=== PATIENT | female | born 1945 | race Caucasian/White ===

== ENCOUNTER → 2017-12-19 | Outpatient (CLI) | payer OTHER ==
[~2017-12-19] MED LIST: ELIQUIS5 MG PO; MEDROLDOSEPACK PO; NEXIUM40 MG PO; TOPROL XL25 MG PO; TYLENOL325 MG PO; ZANAFLEX2 MG PO
--- NOTE | 2018-01-15 08:24 | PAINCON ---
[address] [address] PAIN MANAGEMENT CONSULTATION Name: RAUDEL VILLAGOMEZ Room: [facility] YASMANY Villalobos#: [id number] Admission: 12/19/17 Attend Phys: Ana Werner MD Discharge: Date of : 43 Report #: [id number] THIS REPORT FOR: //name// CC: Olman Werner DATE OF SERVICE: 12/19/2017 FOLLOWUP COMPLAINT: Here for an injection. FOLLOWUP HISTORY: The patient is a 72-year-old female who has been seen in the pain clinic because of lumbar radiculopathy. She continues to have pain and discomfort in the lower portion of her back with pain radiating down into the lateral portion of her back. Epidural steroid injections were performed at the last visit. She did have some pain that was radiating down the posterior portion of her leg in the L5, S1 distribution. Now, her pain is more in the L4-L5 distribution. She has had no complication from the procedure. She feels that she is still somewhat limited in her ability to engage in activities of daily living at work. She does work heavy and does have a pretty physical job. She does quite a bit of cooking. She feels that another injection today could be beneficial and would like to proceed. She is having pain in the low back, hip and down into her legs involving the buttocks with some tingling sensation. She rates her pain as a 9/10 at this juncture. She tries not to take very many medications. She takes Tylenol 615 mg p.r.n. Does not take any nonsteroidal anti-inflammatory medications. She does have some problems with atrial fibrillation. She finds that metoprolol helps keep this under control. Therefore, she is not taking a nonsteroidal anti-inflammatory medication. ALLERGIES: PENICILLIN, OPIOIDS, MEPERIDINE, TOLMETIN. CURRENT MEDICATIONS: Tylenol 650 mg every 6 hours p.r.n., Eliquis 5 mg p.o. b.i.d. The patient has not taken for 3 days, Nexium 40 mg daily, metoprolol 25 mg daily. PAIN CLINICAL ASSESSMENT: 1. The patient states she is not being treated for osteoarthritis or rheumatoid arthritis. 2. Height 5 feet 4 inches, weight 179 pounds, BMI is 30. 3. Vital signs: Blood pressure 128/70, heart rate 72, respiratory rate 16, room air saturation 97%, temperature 97.7. 4. Pain intensity judged to be 9. 5. Fall risk. The patient has not fallen in the last 3 months. 6. The patient is on Eliquis and has stopped this and has taken it for the last 3 days secondary to anticipation of an epidural steroid injection. 7. History of hypertension. The patient is not being [place] [address] PAIN MANAGEMENT CONSULTATION Name: HERNANDORAUDEL Erika Room: [facility]#: [id number] Admission: 12/19/17 Attend Phys: Ana Werner MD Discharge: Date of : 43 Report #: [id number] 8. Opioid use. The patient is not taking opioids on a regular basis. 9. Risk assessment tool. 10. Functional assessment tool. 11. Recreational drugs. The patient never used recreational drugs, tobacco use. She does not use tobacco or alcohol. She does not drink alcohol. PHYSICAL EXAMINATION: GENERAL: The patient is a well-developed, well-nourished female. She is able to ambulate without problem. Appearance is appropriate. Orientation: The patient is alert and oriented x 3. Affect is appropriate. HEAD, EARS, EYES, NOSE AND THROAT: Head is atraumatic. Eyes: Extraocular muscles intact. EARS: Normal hearing. No nasal discharge or complaint. Moist buccal membranes. NECK: Without adenopathy or masses. LUNGS: Clear to auscultation. HEART: Regular rate without murmur. Normal S1, S2. ABDOMEN: Nontender. Patient has some walks slightly slow with an antalgic gait, complaining of back pain with radiation down into her legs. Complains of pain and discomfort along L4-L5 dermatomal distribution with pain radiating down to the level of her feet. IMPRESSION: 1. Lumbar radiculopathy involving the L4 L5 distribution of pain today. The patient notes some numbness, weakness and tenderness in the affected area. She has some limited movement because of pain and discomfort in the lower portion of her back. 2. History of atrial fibrillation, stable with use of metoprolol. 3. Difficulty working secondary to lifting at work. RECOMMENDATIONS: We discussed treatment options with the patient. Risks and benefits of an epidural steroid injection were again discussed. Possible complications of the procedure were reviewed. They include but are not limited to infection, increased muscle soreness headache, bleeding, nerve trauma or worsening of pain. The patient states that she would like to proceed with an injection with hopes that her pain could not improve. She continues to work and notes that she has some pain in the mid spinous area of the L3-L4, L4-L5 and L5-S1 paraspinous muscle areas. PROCEDURE NOTE: The patient was taken to the treatment area. She was helped on to the bed. Her back was sterilely prepped with a Betadine solution. 0.25% bupivacaine was infiltrated into the L4-L5 interspace. This area had been sterilely prepped with Betadine and infiltrated with 0.25% bupivacaine. Anterior, posterior and lateral viewing with the fluoroscope indicated appropriate placement. A 17-gauge Tuohy with loss of resistance technique was used to gain access to the epidural space. There was no CSF, [place] [address] PAIN MANAGEMENT CONSULTATION Name: RAUDEL VILLAGOMEZ Room: [facility] YASMANY Villalobos#: [id number] Admission: 12/19/17 Attend Phys: Ana Werner MD Discharge: Date of : 43 Report #: [id number] paresthesia. Total of 80 mg Depo-Medrol, 40 mg triamcinolone and 2 mL of 0.25% bupivacaine was injected. The patient tolerated the procedure well. There were no complications. She remained in the pain clinic for an appropriate amount of time. She will follow up in the future as needed. We would like to thank you for letting us participate in her care. We hope she continues to improve. <ELECTRONICALLY SIGNED> By: Ana Werner MD 01/15/18 0824 1309 1933N. Morteza Werner MD /nt
== END | disposition home or self-care (01) ==
LOC: M.PC 01:52
DX: M54.16 Radiculopathy, lumbar region (principal); I48.91 Unspecified atrial fibrillation; Z88.0 Allergy status to penicillin; Z88.6 Allergy status to analgesic agent; Z88.8 Allergy status to other drugs, medicaments and biological substances; Z79.899 Other long term (current) drug therapy; Z88.2 Allergy status to sulfonamides

== ENCOUNTER → 2018-02-27 | Outpatient (CLI) | payer OTHER ==
--- NOTE | 2018-03-04 08:16 | PAINCON ---
[address] [address] PAIN MANAGEMENT CONSULTATION Name: RAUDEL VILLAGOMEZ Erika Room: [facility] YSAMANY Villalobos#: [id number] Admission: 02/27/18 Attend Phys: Ana Werner MD Discharge: Date of : 43 Report #: [id number] THIS REPORT FOR: //name// CC: Olman Werner DATE OF SERVICE: 02/27/2018 FOLLOWUP COMPLAINT: "I still have some pain in the low back, hips and the most pain is in the middle of my back." FOLLOWUP HISTORY: The patient is a 72-year-old female, who has been seen in the pain clinic because of lumbar radiculopathy. She also has some pain and discomfort in the middle of her back, which is myofascial in nature. She finds that this pain is that which is most problematic at this juncture. Pain in the center of the back, which can be reproduced with pressing in the area. She rates it as a 9/10. Finds that activities of daily living such as walking, standing, sitting, lifting and bending can be problematic. She states that she has been using a TENS unit. She feels that the epidural steroid injections may have been helpful, but she is no longer having some of the pain that was radiating down into her legs, that which is most problematic today is in the mid portion of her back. Bending and twisting can worsen this pain. She gets a significant pulling sensation in that area when she bends over. ALLERGIES: PENICILLIN, OPIOIDS, MEPERIDINE, AND TOLMETIN. CURRENT MEDICATIONS: 1. Tylenol 600 mg p.o. q. 6 hours p.r.n. 2. Eliquis 5 mg p.o. b.i.d. The patient is not taking this medication for last 3 days with anticipation of an injection. 3. Nexium 40 mg daily. 4. Metoprolol 25 mg daily. PAIN CLINIC ASSESSMENT: 1. The patient is not being treated for osteoarthritis or rheumatoid arthritis. 2. Height 5 feet 4 inches, weight 181 pounds, BMI is 31. 3. Vital Signs: Blood pressure 134/67, respiratory rate 16, room air saturation is 97%, heart rate 66, temperature 97.6. 4. Pain intensity is judged to be 9/9. 5. Fall risk: The patient has not fallen in the last 3 months. 6. Use of anticoagulant medication. The patient is on Eliquis. She has stopped taking this for the last couple of days anticipating a treatment today. 7. Hypertension. The patient is not being treated for hypertension. 8. Opioid use. The patient denies use of opioid use for greater than 6 weeks. 9. [place] [address] PAIN MANAGEMENT CONSULTATION Name: HERNANDORAUDEL Erika [id number] Admission: 02/27/18 Attend Phys: Ana Werner MD Discharge: Date of : 43 Report #: [id number] 10. Functional assessment tool. 11. Recreational drug use: The patient denies use of recreational drugs. 12. Tobacco use. The patient denies use of tobacco. 13. Alcohol: The patient denies use of alcohol. PHYSICAL EXAMINATION: GENERAL: The patient is a well-developed, well-nourished female. She appears her stated age. She is able to ambulate without significant difficulty. She does complain of pain and discomfort and moves somewhat stiffly in the examination room during the interview. Appearance is appropriate. Orientation is appropriate and oriented x 3. Affect is appropriate. HEENT: Normocephalic, atraumatic. Extraocular eye muscles intact. Hearing was within normal limits. Sclerae are nonicteric. Mucous membranes are moist. NECK: Without adenopathy or bruits. Good range of motion. CHEST: Clear to auscultation without rhonchi or rales. ABDOMEN: Nontender, slightly protuberant. MUSCULOSKELETAL: The patient complains of pain and discomfort in the midline at approximately L3 through the dorsum of her sacrum. Palpation at about L4-L5 causes a worsening of pain and discomfort. The patient states that this is an area that is quite problematic and rates it as a 9/10. IMPRESSION: 1. Myofascial pain, midline at approximately L4-L5 to palpation. 2. History of lumbar radicular pain, which has improved somewhat after the last epidural steroid injection. 3. History of atrial fibrillation. The patient is on a blood thinning medication, which she has stopped. 4. History of difficulty working secondary to back pain. 5. The patient was recently fired from her job. RECOMMENDATIONS: We discussed the treatment options with the patient. She does have pain and discomfort in the midline area. Palpation in the midline area and paraspinous muscles at the L3-L4 area cause a significant amount of pain and discomfort. The patient is unable to lean forward because of pain in this area. Lumbar extension is limited because of this, left and right lateral rotation is limited because of this. We discussed the injection of this area with local anesthetic and steroid. Risks and benefits of the procedure were discussed with the patient and she elects to proceed. PROCEDURE NOTE: The patient was placed in the sitting position. Her back was sterilely prepped with a Betadine swab. 0.25% bupivacaine was infiltrated with 40 mg triamcinolone and use of a 25-gauge needle. A total of 10 mL of 0.5% bupivacaine and 80 mg triamcinolone was injected into this area. The patient tolerated the procedure well. She remained in the pain clinic for appropriate amount of time. She states that the pain feels a bit better. She is unable to quantify the amount of [place] [address] PAIN MANAGEMENT CONSULTATION Name: RAUDEL VILLAGOMEZ Erika Room: [facility]#: [id number] Admission: 02/27/18 Attend Phys: Ana Werner MD Discharge: Date of : 43 Report #: [id number] The patient disenchanted that she recently has been fired. She feels that it is not justified. She states that she is not aware that someone could be fired while they were still convalescing from an injury. We would like to thank you for letting us participate in her care. We hope she continues to improve. <ELECTRONICALLY SIGNED> By: Ana Werner MD 03/04/18 0816 1420 [id number]. Morteza Werner MD /[facility]
== END | disposition home or self-care (01) ==
LOC: M.PC 03:25
DX: M79.1 Myalgia (principal); M54.16 Radiculopathy, lumbar region; I48.91 Unspecified atrial fibrillation; Z79.01 Long term (current) use of anticoagulants; Z88.0 Allergy status to penicillin; Z88.2 Allergy status to sulfonamides; Z88.8 Allergy status to other drugs, medicaments and biological substances; Z79.899 Other long term (current) drug therapy

== ENCOUNTER → 2018-03-27 | Outpatient (CLI) | payer OTHER ==
--- NOTE | 2018-04-23 13:50 | PAINCON ---
[address] [address] PAIN MANAGEMENT CONSULTATION Name: HERNANDORAUDEL Erika Room: [facility] YASMANY Villalobos#: [id number] Admission: 03/27/18 Attend Phys: Ana Werner MD Discharge: Date of : 43 Report #: [id number] THIS REPORT FOR: //name// CC: Olman Werner DATE OF SERVICE: 03/27/2018 FOLLOWUP COMPLAINT: "The H-wave machine still is helpful and I am still having back pain." FOLLOWUP HISTORY: The patient is a 72-year-old female who has been seen in the pain clinic because of low back pain involving her hips as well as the middle of her back. As you may recall, she worked at [employer]. 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 States that when she was delivering food to a venue, the item that she was carrying was somewhat oversized and bulky. While carrying this into the building she noted some worsening of pain and discomfort in her back. She has been suffering from pain and discomfort as a result of that for some time. She has undergone epidural steroid injection. She felt like that was somewhat helpful. She still had pain and discomfort. She returned and note was made of a trigger point at the last visit and she underwent a trigger point injection using 40 mg of triamcinolone and 80 mg in the L3-L4 areas. Overall, she felt that there was some improvement in her pain. She did find that as she has in the past she turned significantly red. This is a usual finding. She then feels that she may have had some outbreaks about a week later. Noted some irritation around her eye glasses and area around her chin kind of one in the front chest area, but did not note an overall generalized rash. She feels that the nerve stimulating unit H-wave unit continues to be beneficial. She does use it at home. She has had no complications from that. She has returned today for evaluation and further consideration of treatment options. ALLERGIES: PENICILLIN, OPIOIDS, MEPERIDINE, TOLMETIN. CURRENT MEDICATIONS: Tylenol p.r.n., Eliquis 5 mg p.o. b.i.d., Nexium 40 mg daily, metoprolol 25 mg daily. PAIN CLINIC ASSESSMENT: 1. Osteoarthritis/rheumatoid arthritis. The patient is not being treated for osteoarthritis or rheumatoid arthritis. 2. Height 5 feet 4 inches, weight 178 pounds, BMI is 30.7. 3. Vital signs: Blood pressure is 148/75, heart rate is 49, respiratory rate 16, room air saturation 96%, and temperature 97.8. Pain intensity judged to be 8/10. [place] [address] PAIN MANAGEMENT CONSULTATION Name: RAUDEL VILLAGOMEZ Room: [facility] Griselda#: [id number] Admission: 03/27/18 Attend Phys: Ana Werner MD Discharge: Date of : 43 Report #: [id number] 4. Fall risk. The patient has not fallen in the last 3 months. 5. Use of anticoagulant: The patient is on Eliquis and has continued with her medication. 6. Hypertension: The patient is not being treated for hypertension. 7. Opioid use: The patient denies use of opioid therapy greater than 6 weeks. 8. Risk assessment tool. 9. Functional assessment tool. 10. Recreational drug use: The patient denies use of recreational drugs 11. Tobacco use: The patient denies use of tobacco. 12. Alcohol: The patient denies use of alcohol. PHYSICAL EXAMINATION: GENERAL: The patient is a well-developed, well-nourished white female. She appears to be than her stated age. She is loquacious. Does complain of pain and discomfort as well as some stiffness in her low back area. HEENT: Normocephalic, atraumatic. Extraocular eye muscles intact. Sclerae nonicteric Hearing is within normal limits. NECK: Without bruits, or adenopathy. Has good range of motion. CHEST: Clear to auscultation without rhonchi or rales. ABDOMEN: Nontender, slightly protuberant. MUSCULOSKELETAL: The patient complains of pain and discomfort in the midline area at approximately L3 in the dorsum of her sacrum. Palpation in the L4-L5 paraspinous areas reproduces some discomfort. SKIN: No evidence of welts or skin breakout is noted at the time of our interview. IMPRESSION: 1. Continued myofascial pain in the midline area at approximately L4-L5. 2. History of lumbar radicular pain somewhat improved and difficult to assess in the problem today. 3. History of atrial fibrillation. The patient is on a blood thinning agent. 4. History of difficult working secondary to her back - the patient states that she has been fired. RECOMMENDATIONS: We discussed treatment options with the patient. At this juncture, we would recommend that she continues to stretch and exercise as best she can. She feels that the H-wave machine is beneficial. We recommend that she continue with this given that she finds that it is helpful. As you recall, the patient states that she has gone to physical therapy, difficult to assess whether or not this would be beneficial more at this juncture. There still remains an option. We will have the patient try a muscle relaxant. A script for Zanaflex has been prescribed. We have given her one medication. She states that she has a significant amount of sensitivity to a number of medications. We will note the improvements by this medication. She will call us if she has any problems with the medication. She will call us if she finds that the medication is beneficial. We would like to thank you [place] [address] PAIN MANAGEMENT CONSULTATION Name: RAUDEL VILLAGOMEZ Erika [id number] Admission: 03/27/18 Attend Phys: Ana Werner MD Discharge: Date of : 43 Report #: [id number] care. We hope she continues to improve. The patient is concerned that she was fired. States that she had worked at that job for about 9 years. We would like to thank you for letting us participate in her care. <ELECTRONICALLY SIGNED> By: Ana Werner MD 04/23/18 1350 1102 0152N. Morteza Werner MD /nt
== END ==
LOC: M.PC 04:03
DX: M54.16 Radiculopathy, lumbar region (principal); M79.1 Myalgia